=== PATIENT | female | born 1960 | race Caucasian/White ===

== ENCOUNTER 2018-12-27 11:39 | Emergency (ER) | payer BC ==
[~2018-12-27] VITALS: Ht 162.6 cm; Wt 106.0 kg
[2018-12-27] MEDS ORDERED: DICLOFENAC50 MG PO (13:24)
[2018-12-27] MEDS ORDERED: FLEXERIL PO (13:25)
[2018-12-27 13:32] VITALS: BP 216/99
== END 2018-12-27 14:02 | disposition home or self-care (01) | DRG 563 ==
LOC: ED 11:39
DX: S46.912A Strain of unspecified muscle, fascia and tendon at shoulder and upper arm level, left arm, initial encounter (principal); S39.012A Strain of muscle, fascia and tendon of lower back, initial encounter; M16.12 Unilateral primary osteoarthritis, left hip; E11.9 Type 2 diabetes mellitus without complications; I10 Essential (primary) hypertension; W01.0XXA Fall on same level from slipping, tripping and stumbling without subsequent striking against object, initial encounter; Y92.410 Unspecified street and highway as the place of occurrence of the external cause